=== PATIENT | male | born 1970 | race African-American/Black ===

== ENCOUNTER 2021-03-20 21:23 | Emergency (ER) | payer MEDICAID, OTHER ==
[~2021-03-20] VITALS: Ht 182.9 cm; Wt 100.0 kg
[2021-03-20 22:43] VITALS: BP 145/96
== END 2021-03-20 23:00 | disposition home or self-care (01) ==
LOC: ER 21:23
DX: J11.1 Influenza due to unidentified influenza virus with other respiratory manifestations (principal); Z01.84 Encounter for antibody response examination; Z20.822 Contact with and (suspected) exposure to COVID-19
CPT/HCPCS: 87635; 99281; 99283